=== PATIENT | male | born 1990 | race Two or more races ===

== ENCOUNTER → 2024-05-14 | Outpatient (CLI) | payer MEDICAID, SELFPAY ==
--- NOTE | 2024-05-14 15:17 | XR_ITS ---
Examination: Right ankle 2 views Technique one AP lateral right ankle 2 views Exam date and time: May 14, 2024 1530 hours INDICATIONS: Right ankle pain beginning 2 days ago. FINDINGS: Moderate lateral malleolar soft tissue swelling No occult fracture or dislocation No cortical bone destruction IMPRESSION: Moderate lateral malleolar soft tissue swelling
== END | disposition home or self-care (01) ==
PROVIDERS: PCP Family Medicine; Referring Provider Family Medicine; Visit Provider Family Medicine
DX: M25.471 Effusion, right ankle (principal)
CPT/HCPCS: 73600